=== PATIENT | male | born 1970 | race Caucasian/White ===

== ENCOUNTER → 2024-03-15 14:01 | Outpatient (REF) | payer OTHER, SELFPAY | LOC: RCS 14:01 | PROVIDERS: ATTENDING PHYSICIAN Internal Medicine Cardiovascular Disease; FAMILY PHYSICIAN Family Medicine | DX: R94.31 Abnormal electrocardiogram [ECG] [EKG] (principal) | CPT/HCPCS: 93306 ==

== ENCOUNTER → 2024-03-22 15:11 | Outpatient (REF) | payer OTHER, SELFPAY | LOC: RCS 15:11 | PROVIDERS: ATTENDING PHYSICIAN Internal Medicine Cardiovascular Disease; FAMILY PHYSICIAN Family Medicine | DX: E78.00 Pure hypercholesterolemia, unspecified (principal) | CPT/HCPCS: 93017 ==